=== PATIENT | male | born 1995 | race Caucasian/White ===

== ENCOUNTER 2025-03-17 18:07 | Emergency (ER) | payer OTHER, SELFPAY ==
[2025-03-17 18:11] VITALS: BP 166/119
[2025-03-17 19:16] VITALS: BP 116/92
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
[2025-03-17] MEDS: ADACEL 0.5 ML IM (19:27)
[2025-03-17] MEDS: TYLENOL 1000 MG PO (19:27)
[2025-03-17 19:44] LABS: % Basophils 0.3 % (0-2); % Immature Granulocytes 0.4 % (0-0.5); % Lymphocytes 8.2 % (20.5-51.1); % Monocytes 12.1 % (1.7-9.3); Absolute Immature Granulocytes 0.1 10^3/uL (0-0.05); Absolute Lymphocytes 1.1 10^3/uL (1.2-3.4); Absolute Monocytes 1.6 10^3/uL (0.1-0.6); Absolute Neutrophils 10.2 10^3/uL (1.4-6.5); Hemoglobin 17.9 g/dL (13.0-18.0); Mean Corp Hgb Conc. 36.5 g/dL (33.0-37.0); Mean Corpuscular Hgb 32.2 pg (27.0-31.0); Mean Corpuscular Volume 88.1 fL (80.0-94.0); Mean Platelet Volume 10.1 fL (7.4-10.4); Nucleated Red Blood Cells % 0 % (-); Platelet Count 207 10^3/uL (130-400); Red Blood Cell Count 5.56 10^6/uL (4.70-6.10); Red Cell Dist. Width 12.4 % (11.5-14.5); White Blood Cell Count 12.9 10^3/uL (4.8-10.8)
[2025-03-17 20:00] VITALS: BP 147/99
[2025-03-17 20:03] LABS: ALT (SGPT) 239 U/L (0-50); Albumin 5.3 g/dl (3.5-5.0); Alkaline Phosphatase 79 U/L (38-126); Blood Urea Nitrogen 10 mg/dl (9-20); Carbon Dioxide 25 mmol/L (22-30); Chloride 99 mmol/L (98-107); Glucose 102 mg/dl (70-99); Potassium 4.7 mmol/L (3.5-5.1); Sodium 138 mmol/L (135-145); Total Bilirubin 1.7 mg/dl (0.2-1.3); Total Protein 8.1 g/dl (6.3-8.2); eGFR > 60.00
[2025-03-17 20:11] LABS: AST (SGOT) 1097 U/L (17-59)
[2025-03-17 20:42] LABS: PT 13.5 Sec (11.4-14.6)
[2025-03-17 20:47] LABS: Acetaminophen < 10 ug/ml (10-30)
[2025-03-17] MEDS: KEFLEX 500 MG PO (20:58)
[2025-03-17 21:04] VITALS: BP 168/93
== END 2025-03-17 21:05 | disposition home or self-care (01) ==
LOC: EMR 18:07
PROVIDERS: EMERGENCY PHYSICIAN Emergency Medicine; FAMILY PHYSICIAN Internal Medicine
DX: S02.2XXA Fracture of nasal bones, initial encounter for closed fracture (principal); S00.511A Abrasion of lip, initial encounter; S80.212A Abrasion, left knee, initial encounter; S80.211A Abrasion, right knee, initial encounter; X58.XXXA Exposure to other specified factors, initial encounter; Z23 Encounter for immunization
CPT/HCPCS: 99284; 90471; 70450; 70486; 80053; 80143; 85025; 85610; 90715